=== PATIENT | female | born 2000 | race Caucasian/White ===

== ENCOUNTER 2018-08-09 19:14 | Emergency (ER) | payer OTHER ==
[~2018-08-09] VITALS: Ht 167.6 cm; Wt 80.6 kg
[2018-08-09 19:17] VITALS: BP 139/81; PULSE 106; RESP 16; Ht 167.6 cm; Wt 80.6 kg
== END 2018-08-09 19:20 | disposition left against medical advice (07) ==
LOC: FTE 19:14
DX: Z53.21 Procedure and treatment not carried out due to patient leaving prior to being seen by health care provider (principal)